=== PATIENT | female | born 1980 | race Hispanic/Latino ===

== ENCOUNTER 2021-07-06 05:10 | Emergency (ER) | payer MEDICAID, SELFPAY ==
[2021-07-06 05:11] VITALS: BP 131/73; PULSE 62; RESP 18; TEMP 35.7; O2SAT 100; BMI 47.7
--- NOTE | 2021-07-06 05:36 | EKG12_ITS ---
Test Reason : CP Blood Pressure : / mmHG Vent. Rate : 061 BPM Atrial Rate : 061 BPM P-R Int : 130 ms QRS Dur : 078 ms QT Int : 420 ms P-R-T Axes : -09 -37 -27 degrees QTc Int : 422 ms Normal sinus rhythm Left axis deviation Abnormal ECG Confirmed by RAÚL HOBBS, NISHANT ([id number]), food editor CHIQUIS SOLO ([id number]) on 07/08/2021 10:38:37 AM Referred By: BB Confirmed By:NISHANT OLSEN MD
--- NOTE | 2021-07-06 05:37 | ED.VIS.CHEST ---
HPI History of Present Illness Chief Complaint: Chest Pain Informant: patient Onset/Context/Timing Onset: Month(s) (1) Activity at onset: sudden and onset Timing: Intermittent and Lasts (Varies, 1-2 hours this morning) Quality: Positive for Pain Location: Left Chest (2 different areas of left chest) Worsened By: Movement of Torso (Left lateral/axillary pain: Worse with movement, palpation, deep inspiration. Left upper anterior chest: Worse with turning head/neck.) Relieved By: Remaining Still Associated Symptoms: Positive for Cough; Negative for Nausea, Vomiting, Diaphoresis, Dyspnea and Lightheadedness Narrative Narrative: Patient has been having this discomfort off and on for the last month. She had another episode tonight that has been lasting longer so she presents for evaluation. She states she has been to [place] in [facility] for testing regarding this discomfort, she states they ruled out a blood clot for her among other things. She has no history of coronary disease but had a loop recorder implanted about 2 years ago because of episodes of SVT. She has frequent episodes of minor fluttering palpitations that are brief, almost daily, she has been having those but nothing worse or anything that feels like SVT recently. She denies any fevers, chills, myalgias, headaches, leg pain or swelling, or any other systemic symptoms. She did travel home from [place] about a week ago after visiting down there for her mother's . She drove. Never had a DVT or PE before. No history of hemoptysis recently with her mild cough, leg symptoms, or any recent surgery/hospitalization/injury. She does not take any female hormones were contraceptives. [facility] Medical History SVT (supraventricular tachycardia) Home Medications aspirin 81 mg PO DAILY 07/06/21 [History Last Taken Unknown] Allergy/AdvReac Type Severity Reaction Status Date / Time Penicillins Allergy Anaphylaxis Verified 07/06/21 05:16 ondansetron [From Zofran] AdvReac Hives Verified 07/06/21 05:16 Surgical History (Updated 07/06/21 @ 05:22 by Lisa Villeda) S/P ablation operation for arrhythmia Social History Smoking Status: Never smoker ROS ROS ED Constitutional Constitutional ED: Denies chills or fever(s) Eyes Eyes: Denies change in vision or diplopia ENT ENT ED: Denies rhinorrhea or sore throat Cardiovascular Cardiovascular: Reports as per HPI, chest pain and palpitations Respiratory/Chest Respiratory/Chest: Reports cough; Denies dyspnea Gastrointestinal Gastrointestinal: Denies abdominal pain, diarrhea, nausea or vomiting Genitourinary Genitourinary ED: Denies dysuria or hematuria Musculoskeletal Musculoskeletal: Denies back pain or neck pain Integumentary Denies abscess or rash Neurologic Neurologic: Denies headache(s), paresthesias or weakness Psychiatric Psychiatric: Denies anxiety or suicidal thoughts EXAM Physical Exam Const Vital Signs: 07/06/21 05:11 07/06/21 05:22 Temperature 96.3 F L Temperature Source Temporal Pulse Rate 62 Respiratory Rate 18 Respiratory Effort Non-Labored Blood Pressure 131/73 H Blood Pressure Mean 92 Pulse Ox 100 Oxygen Delivery Method Room Air Positive well nourished, well developed and obese General Appearance ED: well developed and NAD Nutritional Appearance: obese HEENT Reports moist mucous membranes normocephalic and atraumatic Eyes PERRL and EOMs intact bilaterally Neck full ROM and supple Chest Wall inspection of chest normal Chest Narrative: Very tender and left lateral upper chest wall near the axilla. No palpable lymphadenopathy or mass. Exam limited due to withdrawing from the patient with light palpation of the area between the axilla and the breast. Left upper anterior midclavicular chest is nontender, however palpating the insertion of the sternocleidomastoid on the left clavicle is very tender. Resp normal respiratory effort and clear to auscultation bilaterally Cardio regular rate, regular rhythm and no murmurs GI non-tender and non-distended Auscultation: normoactive bowel sounds Palpation: soft Back/Spine no CVA tenderness General Back: other FROM Extremity normal to inspection General Extremety ED: Negative for edema, pulses abnormal or tenderness General Extremity: Negative for edema or pulses abnormal Neuro oriented x3, CN's II-XII intact bilaterally and no sensory deficits noted Sensorium / Orientation: awake and alert Motor Exam: strength 5/5 throughout Skin no rashes or lesions noted and no wounds MDM MDM MDM Narrative Medical decision making narrative: PERC Rule for Pulmonary Embolism from [employer] on 07/06/2021 All calculations should be rechecked by clinician prior to use RESULT SUMMARY: 0 criteria No need for further workup, as <2% chance of PE. If no criteria are positive and clinician?s pre-test probability is <15%, PERC Rule criteria are satisfied. INPUTS: Age >50 ?> 0 = No HR >100 ?> 0 = No O2 sat on room air <95% ?> 0 = No Unilateral leg swelling ?> 0 = No Hemoptysis ?> 0 = No Recent surgery or trauma ?> 0 = No Prior PE or DVT ?> 0 = No Hormone use ?> 0 = No Rest of the patient's work-up is normal. Her EKG does show a left axis and some diffuse T wave flattening, no acute injury pattern. There is no old for comparison. I think this is incidental and not indicative of the acute discomfort she is having, since it is very unlikely to be cardiac. Her work-up returned negative. She was given Toradol and had some improvement. She is reassured advised to follow-up with primary care. Lab Data Attestation: I reviewed the patient's lab results. Labs: Laboratory Results - last 24 hr 07/06/21 07/06/21 05:55 05:55 WBC 9.1 RBC 4.31 Hgb 11.9 L Hct 37.6 MCV 87.2 MCH 27.6 MCHC 31.6 L RDW Std Deviation 42.8 RDW Coeff of Parrish 13.3 Plt Count 356 MPV 8.4 Immature Gran % (Auto) 0.300 Neut % (Auto) 62.4 Lymph % (Auto) 29.3 Benton % (Auto) 5.6 Eos % (Auto) 2.1 Baso % (Auto) 0.3 Absolute Neuts (auto) 5.7 Absolute Lymphs (auto) 2.67 Nucleated RBC % 0 Sodium 136 Potassium 4.1 Chloride 105 Carbon Dioxide 28.0 Anion Gap 3 L BUN 13 Creatinine 0.79 Estim Creat Clear Calc 69.29 Est GFR (MDRD) Af Amer 103 Est GFR (MDRD) Non-Af 85 BUN/Creatinine Ratio 16.5 Glucose 96 Calcium 8.8 Troponin I High Sens 4 EKG Initial EKG: Attestation: I personally reviewed and interpreted this EKG as follows: Interpretation: Sinus Rhythm, No Acute Injury Pattern, LAFB and Non-Specific ST Changes (T wave flattening. No ST elevation or depressions.) Prior: No Prior Discharge Plan Triage Chief Complaint: Chest Pain ED Provider: Gene Badillo Dx/Rx/DC Orders Clinical Impression: Acute chest wall pain Instructions: ED Chest Pain, Noncardiac Prescriptions: No Action aspirin 81 mg Capsule 81 mg PO DAILY RF: 0 Primary Care Provider: Care Physician,No Primary Referrals: Bella Truong MD [STAFF PHYSICIAN] - (For primary care if you do not already have a local PCP) Disposition Disposition: Home, Self Care
[2021-07-06 06:08] LABS: Absolute Lymphocyte Count 2.67 X10^3/uL (0.83-4.51); Absolute Neutrophil Count 5.7 X10^3/uL (2.0-7.7); Basophil# 0.03 X10^3/uL; Basophil% 0.3 % (0-1); Eosinophil# 0.19 X10^3/uL; Eosinophils% 2.1 % (0-5); Hematocrit 37.6 % (37-47); Hemoglobin 11.9 g/dL (12.0-15.0); Lymphocyte # 2.67 X10^3/ul (0.83-4.51); Lymphocyte % 29.3 % (19-41); Mean Corp Hgb Conc 31.6 g/dL (32-36); Mean Corpuscular Hgb 27.6 pg (27.0-32.0); Mean Corpuscular Volume 87.2 fL (81-99); Mean Platelet Vol. 8.4 fl (6.2-12.0); Monocyte# 0.51 X10^3/uL; Monocyte% 5.6 % (0-10); NRBC Flagged by Analyzer 0 % (0-5); Neutrophil # 5.68 X10^3/uL (2.7-7.7); Neutrophil % 62.4 % (47-70); Platelet Count 356 K/mm3 (150-450); RBC Distribution Width CV 13.3 % (11.6-14.6); RBC Distribution Width SD 42.8 fl (35.1-43.9); Red Blood Count 4.31 M/mm3 (4.2-5.4); White Blood Count 9.1 K/mm3 (4.4-11.0)
--- NOTE | 2021-07-06 06:20 | RAD_ITS ---
EXAM: XR CHEST, 1 VIEW : 1980 CLINICAL INDICATION: chest pain TECHNIQUE: Frontal view of the chest. This report was created using [employer] report generation technology. COMPARISON: None. FINDINGS: LUNGS AND PLEURAL SPACES: Bibasilar atelectasis. No pneumothorax. No effusion. HEART: Unremarkable. Cardiac silhouette not enlarged. MEDIASTINUM: Central airways and mediastinal contour are unremarkable. BONES/JOINTS: Unremarkable. SOFT TISSUES: Unremarkable. TUBES, LINES AND DEVICES: Loop recorder overlying the left heart border. RAD/Chest 1 View (Portable) IMPRESSION: No acute findings in the chest. at 0651 Reported and signed by: Trent Franco MD Electronically Signed: Trent Franco MD at 6:50 EST ,
[2021-07-06 06:26] LABS: Anion Gap 3 (5-15); BUN 13 mg/dL (7-18); BUN/Creat Ratio 16.5 RATIO (10-20); Calcium,Total 8.8 mg/dL (8.5-10.1); Chloride 105 mmol/L (98-107); Creatinine, Serum 0.79 mg/dL (0.55-1.02); EST Glomerular Filtration Rate 85 mL/min (>60); Est Glom Filt Rate - Afr Amer 103 mL/min (>60); Estimated Creatinine Clearance 69.29 ml/min; Glucose 96 mg/dL (74-106); Potassium 4.1 mmol/L (3.5-5.1); Sodium Level 136 mmol/L (136-145); Troponin-I HS 4 pg/mL (3.0-54.0)
[2021-07-06] MEDS: Ketorolac 60 MG/2 ML Vial IM (06:34)
[2021-07-06 06:44] VITALS: BP 113/96; PULSE 58; RESP 19; O2SAT 100
== END 2021-07-06 06:51 | disposition home or self-care (01) ==
LOC: ED 06:30
PROVIDERS: Emergency Provider Emergency Medicine; Visit Provider Emergency Medicine
DX: R07.89 Other chest pain (principal); I47.1 Supraventricular tachycardia
CPT/HCPCS: 71045; 80048; 84484; 85025; 93005; 99283; A4216